=== PATIENT | female | born 1935 | race Caucasian/White ===

== ENCOUNTER 2017-07-22 09:43 | Inpatient (IN) | payer MEDICARE ==
[2017-07-22] MEDS ORDERED: Acetaminophen 500 MG TAB ONE (09:58)
[2017-07-22 10:23] LABS: #Basophils 0.1 thou/uL (0.0-0.2); #Eosinphils 0.1 thou/uL (0.0-0.7); #Lymphocytes 0.6 thou/uL (1.20-3.40); #Neutrophils 5.6 thou/uL (1.40-6.50); %Basophils 1.6 % (0.0-1.0); %Eosinophils 0.8 % (0.0-10.0); %Lymphocytes 8.2 % (21.0-51.0); %Monocytes 13.1 % (0.0-10.0); %Neutrophils 76.4 % (42.0-75.0); Hemoglobin 14.5 g/dL (12.0-16.0); Mean Corpuscular HGB CONC 34.6 g/dL (32.0-36.0); Mean Corpuscular Hemoglobin 31.8 pg (27.0-31.0); Mean Corpuscular Volume 91.7 fl (81.0-99.0); Mean Platelet Volume 6.6 fL (7.4-10.4); Platelet Count 177 thou/uL (130-400); RBC Distribution Width 11.1 % (11.5-14.5); Red Blood Cell (RBC) Count 4.57 mill/uL (4.20-5.40); White Blood Cell (WBC) Count 7.4 thou/uL (4.8-10.8)
[2017-07-22 10:37] LABS: ALT (SGPT) 20 U/L (8-55); AST (SGOT) 26 U/L (5-34); Alkaline Phosphatase 81 U/L (40-150); Anion Gap 14 mmol/L (10-20); BUN (Urea Nitrogen) 12 mg/dL (9.8-20.1); Bilirubin, Total 0.8 mg/dL (0.2-1.2); CK (CPK) 133 U/L (29-168); Calc. Creatinine Clearance 0 mL/min (70-130); Calcium 9.2 mg/dL (7.8-10.44); Carbon Dioxide 26 mmol/L (23-31); Chloride 100 mmol/L (98-107); Estimated GFR-MDRD 59; Globulin 3.7 g/dL (2.4-3.5); Glucose 116 mg/dL (83-110); Lipase 40 U/L (8-78); Potassium 3.7 mmol/L (3.5-5.1); Protein, Total 7.7 g/dL (6.0-8.3); Sodium 136 mmol/L (136-145)
[2017-07-22 10:40] LABS: CKMB 1.2 ng/mL (0-6.6); Troponin I 0.069 ng/mL (< 0.028)
--- NOTE | 2017-07-22 10:45 | RAD ---
RADIOGRAPH CHEST 1 VIEW: HISTORY: 81-year-old female with cough, chills, and fever. FINDINGS: There are no air space densities, pulmonary edema, pneumothorax, or cardiomegaly. The lateral costop hrenic angles are sharp. IMPRESSION: No acute cardiopulmonary findings. forrest [] POS: [facility]
[2017-07-22] MEDS ORDERED: Oseltamivir 75 MG CAP ONE (10:55)
[2017-07-22] MEDS ORDERED: Ondansetron HCl/PF 4 MG/2 ML Vial IVP PRN ×2 (12:24→13:23)
[2017-07-22] MEDS ORDERED: Ondansetron ODT 4 MG TAB SL PRN (12:24)
[2017-07-22] MEDS ORDERED: Sodium Chloride 0.9% 1,000 ML IV SCH (12:24)
[2017-07-22 12:47] VITALS: BMI 33.5
[2017-07-22] MEDS ORDERED: Ondansetron ODT 4 MG TAB PO PRN (13:23)
[2017-07-22] MEDS ORDERED: Mag-Al 1200 mg/1200 mg/30 ML UDCUP PO PRN (13:23)
[2017-07-22] MEDS ORDERED: cloNIDine 0.1 MG TAB PO PRN (13:23)
[2017-07-22] MEDS ORDERED: Acetaminophen 325 MG TAB PO PRN ×2 (13:23→14:10)
[2017-07-22] MEDS ORDERED: Milk Of Magnesia 30 ML UDCUP PO PRN (13:23)
[2017-07-22 14:49] LABS: Free T4 (Free Thyroxine) 1.07 ng/dL (0.70-1.48); Thyroid Stimulating Hormone 0.235 uIU/mL (0.35-4.94)
[2017-07-22] MEDS: Sodium Chloride 0.9% 1,000 ML IV SCH (15:13)
[2017-07-22] MEDS: Albuterol Sulfate 1.25 MG/3 ML NEB INH SCH ×2 (15:23→23:29)
--- NOTE | 2017-07-22 20:26 | HP ---
PRIMARY CARE PHYSICIAN: The patient does not have a primary care physician. CHIEF COMPLAINT: Coughing. HISTORY OF PRESENT ILLNESS: Ms. Muhammad is a very pleasant 81-year-old female, who has a history of r heumatoid arthritis. She is currently taking 4 mg of prednisone daily for this. She says that she h as been having a cough since Sunday. She says it has been fairly constant, it has been nonproductive . When asked if she is having any chest pain, she did admit to some pain in her chest, but she relat es it to coughing. She denies feeling short of breath, but admits that she has not been doing much w ith regards to moving around. She also complains of having a fever up to a 102 yesterday, but no hea dache or dizziness. She says that her children forced her to come into the emergency room for evalua tion. In the ER, she was found to be tachycardic with a heart rate in the 140s to 150s and she was p ositive for influenza A and for this reason she is being admitted. Chest x-ray in the ER was negativ e for any infiltrate or effusion. When asked how the patient is feeling, she says she feels fine oth er than having a cough, currently is not short of breath. She is sitting up watching TV with 2 of he r 3 children at the bedside. REVIEW OF SYSTEMS: Constitutional: She has had subjective fever, but no chills, no night sweats, no weight loss, but she has had a poor appetite. HEENT: She denies any headache. She denies feeling dizzy. She denies any sore throat, no rhinorrhea, no neck pain, no adenopathy. Pulmonary: She does complain of hearing some wheezing and having a cough, which has been primarily nonproductive. No he moptysis. Cardiovascular: She denies any chest pain, no PND, no orthopnea, no lower extremity edema . Gastrointestinal: She denies any abdominal pain, no nausea, no vomiting, no change in bowels. Ge nitourinary: No urinary frequency, no hematuria, no hesitancy. Neurologic: No focal weakness, no n umbness, no seizures. Psychiatric: No symptoms of anxiety or depression. Skin and Integument: No s kin changes. No rash. PAST MEDICAL HISTORY: Significant for rheumatoid arthritis. PAST SURGICAL HISTORY: She has had a tonsillectomy and sinus surgery. ALLERGIES: No known drug allergies. SOCIAL HISTORY: She is , has 3 children. She is a nonsmoker, nondrinker. She lives with one of her daughters. FAMILY HISTORY: No history of any inheritable diseases. MEDICATIONS: Include prednisone 4 mg daily. PHYSICAL EXAMINATION: GENERAL: She is alert and oriented. She appears to be in no acute distress. VITAL SIGNS: Her blood pressure is 131/74, heart rate 150, respiratory rate of 20, temperature is 99 .7. HEENT: Pupils are equal, round, and reactive. Extraocular muscles are intact. Sclerae are anicteri c. Throat: There is no erythema, no exudates. NECK: No adenopathy, no bruits. LUNGS: She has got fairly tight expiratory wheezing bilaterally and throughout her entire lung field s. CARDIOVASCULAR: She has a normal S1, S2, but her heart rate is tachycardic. I am unable to assess o r hear any murmurs or rubs. ABDOMEN: Obese, it is soft, it is nontender, nondistended. Positive for bowel sounds. No rebound o r guarding. EXTREMITIES: There is no edema. NEUROLOGIC: The exam is nonfocal. LABORATORY RESULTS: Sodium is 136, potassium is 3.7, chloride is 100, CO2 is 26, BUN is 12, creatini ne is 0.92, glucose is 116, and troponin is 0.069. White blood cell count is 7.4, hemoglobin is 14.5 , hematocrit is 41.9, and platelet count is 177. IMAGING: She had an EKG done, which was significant for sinus tachycardia. ASSESSMENT AND PLAN: This is a pleasant 81-year-old female who is influenza A positive, who has tach ycardia, which may be related to some mild volume depletion from the flu as well as the excessive cou ghing. However, when I did a review of her EKG, I do have some difficulty making of P-waves; however , her heart rate is regular. It is possible she could have some form of atrial tachycardia or suprav entricular tachycardia as well. She will be placed in observation. We will continue IV fluids and g et a TSH and free T4 as well as continue treating her with Tamiflu and treat her respiratory status. If her tachycardia persists, then we will need to consult Cardiology. For the rheumatoid arthritis, she will continue prednisone at 4 mg a day; however, today we will give her a single dose of IV Solu -Medrol at 40 mg primarily for her respiratory status.
[2017-07-22] MEDS ORDERED: Oseltamivir 75 MG CAP PO SCH (21:00)
[2017-07-22] MEDS: Oseltamivir 75 MG CAP PO SCH (21:02)
[2017-07-23] MEDS: Sodium Chloride 0.9% 1,000 ML IV SCH (03:05)
[2017-07-23 04:59] LABS: #Lymphocytes 0.5 thou/uL (1.20-3.40); #Monocytes 0.5 thou/uL (0.11-0.59); #Neutrophils 3.6 thou/uL (1.40-6.50); %Eosinophils 0.2 % (0.0-10.0); %Lymphocytes 11.3 % (21.0-51.0); %Monocytes 10.6 % (0.0-10.0); %Neutrophils 77.9 % (42.0-75.0); Hemoglobin 12.1 g/dL (12.0-16.0); Mean Corpuscular HGB CONC 33.4 g/dL (32.0-36.0); Mean Corpuscular Volume 98.8 fl (81.0-99.0); Mean Platelet Volume 7.2 fL (7.4-10.4); Platelet Count 158 thou/uL (130-400); RBC Distribution Width 11.7 % (11.5-14.5); Red Blood Cell (RBC) Count 3.67 mill/uL (4.20-5.40); White Blood Cell (WBC) Count 4.6 thou/uL (4.8-10.8)
[2017-07-23 05:17] LABS: Anion Gap 12 mmol/L (10-20); BUN (Urea Nitrogen) 16 mg/dL (9.8-20.1); Calc. Creatinine Clearance 86 mL/min (70-130); Calcium 8.7 mg/dL (7.8-10.44); Carbon Dioxide 23 mmol/L (23-31); Chloride 107 mmol/L (98-107); Estimated GFR-MDRD 76; Glucose 133 mg/dL (83-110); Potassium 3.6 mmol/L (3.5-5.1); Sodium 138 mmol/L (136-145)
[2017-07-23] MEDS: Albuterol Sulfate 1.25 MG/3 ML NEB INH SCH ×3 (06:57→22:21)
[2017-07-23] MEDS: Oseltamivir 75 MG CAP PO SCH ×2 (09:16→21:36)
[2017-07-23] MEDS: predniSONE 1 MG TAB PO SCH (09:16)
[2017-07-23] MEDS: Enoxaparin Sodium 40 MG/0.4 ML SYRINGE SC SCH (09:17)
--- NOTE | 2017-07-23 12:22 | PDOC.PN ---
- Subjective Encounter Start Date: 07/23/17 Encounter Start Time: 12:21 Ms. Muhammad was seen today in follow-up. She is still feeling a bit weak. she has been coughing a lot, and has a sore throat. - Objective Resuscitation Status: Resuscitation Status FULL:Full Resuscitation MAR Reviewed: Yes Vital Signs & Weight: Vital Signs (12 hours) Temp Pulse Resp BP BP Pulse Ox 07/23/17 11:31 97.7 F 62 18 158/71 H 95 07/23/17 08:30 97.8 F 87 18 179/80 H 95 07/23/17 07:45 97.8 F 87 18 179/80 H 95 07/23/17 06:57 68 16 96 07/23/17 03:06 98.2 F 94 20 142/95 H 92 L I&O: 07/22/17 07/23/17 07/24/17 06:59 06:59 06:59 Intake Total 1531 Balance 1531 Result Diagrams: 07/23/17 04:29 07/23/17 04:29 Phys Exam - Physical Examination HEENT: PERRLA Respiratory: wheezing present + tight wheezing bilaterally Cardiovascular: RRR, no significant murmur, no rub Gastrointestinal: soft, non-tender, positive bowel sounds Musculoskeletal: no edema Dx/Plan (1) Influenza A Code(s): J10.1 - FLU DUE TO OTH IDENT INFLUENZA VIRUS W OTH RESP MANIFEST Status: Acute (2) Acute bronchitis Code(s): J20.9 - ACUTE BRONCHITIS, UNSPECIFIED Status: Acute (3) Rheumatoid arthritis Code(s): M06.9 - RHEUMATOID ARTHRITIS, UNSPECIFIED Status: Acute - Plan * Influenza A- continue Tamiflu and symptom relief * RA- stable * Possibly home tomorrow if brochospasms have improved.
[2017-07-23] MEDS ORDERED: Chloraseptic Spray 180 ml Bottle PO PRN (12:24)
[2017-07-23 13:46] LABS: Troponin I 0.045 ng/mL (< 0.028)
[2017-07-23] MEDS: Benzonatate 100 MG CAP PO SCH ×2 (14:49→21:37)
[2017-07-24] MEDS: Albuterol Sulfate 1.25 MG/3 ML NEB INH SCH (07:02)
[2017-07-24] MEDS: predniSONE 1 MG TAB PO SCH (07:28)
[2017-07-24] MEDS: Enoxaparin Sodium 40 MG/0.4 ML SYRINGE SC SCH (07:29)
[2017-07-24] MEDS: Oseltamivir 75 MG CAP PO SCH ×2 (07:29→21:55)
[2017-07-24] MEDS: Benzonatate 100 MG CAP PO SCH ×3 (07:29→21:55)
[2017-07-24] MEDS ORDERED: Albuterol Sulfate 2.5 mg/3 ml Neb NEB PRN (10:07)
--- NOTE | 2017-07-24 11:04 | RAD ---
SINGLE VIEW OF THE CHEST: COMPARISON: 07/22/17. HISTORY: Acute hypoxia. FINDINGS: Single view of the chest shows a normal sized cardiomediastinal silhouette. There is no evidence of c onsolidation, mass, or pleural effusion. The bones are unremarkable. IMPRESSION: No evidence of acute cardiopulmonary disease. POS: [facility]
--- NOTE | 2017-07-24 11:26 | PDOC.PN ---
- Subjective Encounter Start Date: 07/24/17 Encounter Start Time: 09:50 -: old records requested/rev Pt seen and examined, chart reviewed i its entirety. This is my first visit with this patient. Daughter at [facility], updated Pt earlier with fever 102.3, elevated HR and BP. On review, Pt looked ot be in aflutter on admit, converted to SR and has remained. Today, was tachy in 110s with fever, back to 80s on my exam. No N/v/D/C, no CP, +SOB. 86% on RA 10 point ROS performed and neg for all systems except as per hPI - Objective MAR Reviewed: Yes Result Diagrams: 07/23/17 04:29 07/23/17 04:29 Radiology Reviewed by me: Yes EKG Reviewed by me: Yes Phys Exam - Physical Examination Constitutional: NAD HEENT: PERRLA, moist MMs, sclera anicteric, oral pharynx no lesions Neck: no nodes, no JVD, supple, full ROM Respiratory: no rales, no rhonchi diffuse insp and exp wheezes in all lung junior, R>L Cardiovascular: RRR, no significant murmur, no rub Gastrointestinal: soft, non-tender, no distention, positive bowel sounds Musculoskeletal: no edema, pulses present Neurological: non-focal, normal sensation, moves all 4 limbs Lymphatic: no nodes Psychiatric: normal affect, A&O x 3 Skin: no rash, normal turgor, cap refill <2 seconds Dx/Plan (1) Reactive airway disease with wheezing Code(s): J45.909 - UNSPECIFIED ASTHMA, UNCOMPLICATED Status: Acute Qualifiers: Asthma severity: unspecified severity Asthma persistence: unspecified Asthma complication type: with acute exacerbation Qualified Code(s): J45.901 - Unspecified asthma with (acute) exacerbation (2) Acute hypoxemic respiratory failure Code(s): J96.01 - ACUTE RESPIRATORY FAILURE WITH HYPOXIA Status: Acute Comment: 86% on RA, accompanied by wheezing. Iv steroids, nebs, O2, wean as tolerated (3) Sepsis Code(s): A41.9 - SEPSIS, UNSPECIFIED ORGANISM Status: Acute Comment: present on admit, fever, tachycadia, elevated WBC, possible bacterial/virla infection with FLu A +. resolving. still with fever and tachycardia, WBC resolved (4) Acute bronchitis Code(s): J20.9 - ACUTE BRONCHITIS, UNSPECIFIED Status: Acute Qualifiers: Bronchitis organism: other organism Qualified Code(s): J20.8 - Acute bronchitis due to other specified organisms Comment: influenza A On tamiflu (5) Influenza A Code(s): J10.1 - FLU DUE TO OTH IDENT INFLUENZA VIRUS W OTH RESP MANIFEST Status: Acute (6) Rheumatoid arthritis Code(s): M06.9 - RHEUMATOID ARTHRITIS, UNSPECIFIED Status: Acute Qualifiers: Rheumatoid arthritis location: unspecified site Rheumatoid factor presence : with rheumatoid factor Qualified Code(s): M05.9 - Rheumatoid arthritis with rheumatoid factor, unspecified Comment: normally steroid dependent [id number] pred daily. - Plan cont current plan of care, plan discussed w/ family, continue antibiotics, PT/OT , respiratory therapy, out of bed/ambulate, DVT proph w/lovenox * .
[2017-07-25] MEDS ORDERED: Esmolol 2,500 MG/250 ML 250 ML IVPB SCH ×2 (03:45→08:30)
[2017-07-25 05:12] LABS: #Lymphocytes 0.5 thou/uL (1.20-3.40); #Monocytes 0.2 thou/uL (0.11-0.59); #Neutrophils 5.7 thou/uL (1.40-6.50); %Basophils 0.3 % (0.0-1.0); %Eosinophils 0.1 % (0.0-10.0); %Lymphocytes 7.5 % (21.0-51.0); %Monocytes 3.7 % (0.0-10.0); %Neutrophils 88.5 % (42.0-75.0); Hemoglobin 13.6 g/dL (12.0-16.0); Mean Corpuscular HGB CONC 33.9 g/dL (32.0-36.0); Mean Corpuscular Hemoglobin 33.1 pg (27.0-31.0); Mean Corpuscular Volume 97.7 fl (81.0-99.0); Mean Platelet Volume 7.3 fL (7.4-10.4); Platelet Count 171 thou/uL (130-400); RBC Distribution Width 11.6 % (11.5-14.5); Red Blood Cell (RBC) Count 4.11 mill/uL (4.20-5.40); White Blood Cell (WBC) Count 6.4 thou/uL (4.8-10.8)
[2017-07-25 05:37] LABS: Anion Gap 15 mmol/L (10-20); BUN (Urea Nitrogen) 16 mg/dL (9.8-20.1); Calc. Creatinine Clearance 82 mL/min (70-130); Calcium 9.5 mg/dL (7.8-10.44); Carbon Dioxide 21 mmol/L (23-31); Chloride 105 mmol/L (98-107); Estimated GFR-MDRD 72; Glucose 134 mg/dL (83-110); Magnesium 2.1 mg/dL (1.6-2.6); Potassium 3.6 mmol/L (3.5-5.1); Sodium 137 mmol/L (136-145)
[2017-07-25] MEDS: Oseltamivir 75 MG CAP PO SCH ×2 (08:55→20:39)
[2017-07-25] MEDS: Benzonatate 100 MG CAP PO SCH ×3 (08:55→20:39)
[2017-07-25] MEDS: Enoxaparin Sodium 40 MG/0.4 ML SYRINGE SC SCH (08:57)
[2017-07-25] MEDS ORDERED: predniSONE 20 MG TAB PO SCH (09:30)
[2017-07-25 10:47] LABS: CKMB 4.8 ng/mL (0-6.6); Troponin I 0.016 ng/mL (< 0.028)
[2017-07-25] MEDS ORDERED: Metoprolol Tartrate 5 MG/5 ML VIAL IVP SCH (11:15)
[2017-07-25] MEDS: Digoxin 0.5 MG/2 ML AMP SLOW IVP SCH (11:32)
--- NOTE | 2017-07-25 12:27 | PDOC.PN ---
- Subjective Encounter Start Date: 07/25/17 Encounter Start Time: 09:40 Pt breathing better, but developed afib with RVR with rate up to 170s. Esmolol gtt ordered by Dr Beth, but not started, and pt converted back to NSR. After my visit, pt back to A fib with rat in 150s. given Dig IV X 1 with repeat in 12 hours. CAardiology already consulted by me this AM, awaiting recs. No CP, no SOB, no N/V/d/C. Pt getting up and walking in room without difficulties 10 point ROs performed and neg for all systems except as per HPI - Objective MAR Reviewed: Yes Vital Signs & Weight: Vital Signs (12 hours) Temp Pulse Resp BP BP Pulse Ox 07/25/17 11:50 126 H 18 136/80 07/25/17 11:40 116 H 131/77 07/25/17 11:32 155 H 07/25/17 09:00 94 20 186/87 H 07/25/17 08:57 186/87 H 07/25/17 07:45 96.6 F L 154 H 20 175/101 H 94 L 07/25/17 06:27 85 16 97 07/25/17 04:30 94 L 07/25/17 04:00 98.1 F 118 H 20 137/90 94 L Weight Weight 192 lb 8 oz I&O: 07/24/17 07/25/17 07/26/17 06:59 06:59 06:59 Intake Total 1980 Output Total 1000 Balance 980 Result Diagrams: 07/25/17 04:14 07/25/17 04:14 Radiology Reviewed by me: Yes EKG Reviewed by me: Yes Phys Exam - Physical Examination Constitutional: NAD HEENT: PERRLA, moist MMs, sclera anicteric, oral pharynx no lesions Neck: no nodes, no JVD, supple, full ROM Respiratory: no wheezing, no rales, no rhonchi, clear to auscultation bilateral Cardiovascular: RRR, no significant murmur, no rub Gastrointestinal: soft, non-tender, no distention, positive bowel sounds Musculoskeletal: no edema, pulses present Neurological: non-focal, normal sensation, moves all 4 limbs Lymphatic: no nodes Psychiatric: normal affect, A&O x 3 Skin: no rash, normal turgor, cap refill <2 seconds Dx/Plan (1) Reactive airway disease with wheezing Code(s): J45.909 - UNSPECIFIED ASTHMA, UNCOMPLICATED Status: Acute Qualifiers: Asthma severity: unspecified severity Asthma persistence: unspecified Asthma complication type: with acute exacerbation Qualified Code(s): J45.901 - Unspecified asthma with (acute) exacerbation Comment: much better. po steroids today, continue nebs (2) Acute hypoxemic respiratory failure Code(s): J96.01 - ACUTE RESPIRATORY FAILURE WITH HYPOXIA Status: Acute Comment: O2 level better today, wean as tolerated (3) Sepsis Code(s): A41.9 - SEPSIS, UNSPECIFIED ORGANISM Status: Acute Comment: present on admit, fever, tachycadia, elevated WBC, possible bacterial/virla infection with FLu A +. resolving. still with fever and tachycardia, WBC resolved (4) Acute bronchitis Code(s): J20.9 - ACUTE BRONCHITIS, UNSPECIFIED Status: Acute Qualifiers: Bronchitis organism: other organism Qualified Code(s): J20.8 - Acute bronchitis due to other specified organisms Comment: influenza A On tamiflu (5) Influenza A Code(s): J10.1 - FLU DUE TO OTH IDENT INFLUENZA VIRUS W OTH RESP MANIFEST Status: Acute (6) Rheumatoid arthritis Code(s): M06.9 - RHEUMATOID ARTHRITIS, UNSPECIFIED Status: Acute Qualifiers: Rheumatoid arthritis location: unspecified site Rheumatoid factor presence : with rheumatoid factor Qualified Code(s): M05.9 - Rheumatoid arthritis with rheumatoid factor, unspecified Comment: normally steroid dependent teis0pd pred daily. (7) Paroxysmal A-fib Code(s): I48.0 - PAROXYSMAL ATRIAL FIBRILLATION Status: Acute (8) Atrial fibrillation with RVR Code(s): I48.91 - UNSPECIFIED ATRIAL FIBRILLATION Status: Acute (9) New onset a-fib Code(s): I48.91 - UNSPECIFIED ATRIAL FIBRILLATION Status: Acute - Plan cont current plan of care, continue antibiotics, PT/OT, respiratory therapy, out of bed/ambulate, DVT proph w/lovenox * . serial biomarkers, cardiology consult, load with dig. We are out of [facility] here
--- NOTE | 2017-07-25 14:13 | CON ---
DATE OF CONSULTATION: 07/25/2017 INDICATION FOR CONSULTATION: A 81-year-old female with rapid heart rate. HISTORY OF PRESENT ILLNESS: This very pleasant 81-year-old female who has a history of rheumatoid ar thritis has no primary care physician. She does see a levers lace machine operator in [place]. She has been takin g prednisone and she noticed recently she has been having what she thought was a cold coming on and i t ended up that the lady eventually got worse, had a temperature of 104 and 102 she says and then pre sented to emergency room and was found to have influenza. Since being in the hospital, she has episo omer of tachycardia. While in the emergency room her heart rate actually was in the 140s to 150s. est x-ray did not show any acute abnormalities. She does not feel the heart rate when it is tachycar rich, but she has had episodes of atrial fibrillation and flutter since being in the hospital. At thi s time, she has converted back to normal sinus rhythm after being given I believe beta blockers and a lso 1 dose of digoxin. She denies any previous cardiac history. She denied any chest pain. She has no history of hypertension, diabetes, hypercholesterolemia, tobacco abuse or strong family history o f coronary artery disease. PAST MEDICAL HISTORY: Rheumatoid arthritis, herpes zoster. She has had a tonsillectomy and sinus marroquin rgery. ALLERGIES: She has no known drug allergies, but is intolerant to SULFASALAZINE. SOCIAL HISTORY: She is a . She has 3 children. She has no alcohol or tobacco abuse. She live s with one of her daughters. FAMILY HISTORY: Noncontributory for any early heart disease. REVIEW OF SYSTEMS: Twelve point review of systems is unremarkable except what was noted in the histo ry of present illness. She has aches and pains due to her rheumatoid arthritis for which she takes h er steroids. She has no complaints of pains. Presently her only medication prior to admission was p rednisone. PHYSICAL EXAMINATION: GENERAL: Reveals a well-developed, well-nourished female who is in no acute distress. VITAL SIGNS: Her blood pressure at this time is 136/80, heart rate is in the 80s to 90s and shows a normal sinus rhythm at this time. Earlier today her heart rate is in the 150s and showed atrial flut ter with occasional episodes of what appeared to be atrial fibrillation. She is afebrile, respirator y rate is 20. HEENT: Shows the head to be normocephalic, atraumatic. Carotid pulses are present. There were no b ruits noted. CHEST: Her chest has expiratory wheezing in both the upper lobes. CARDIOVASCULAR: She has normal S1, S2. I cannot hear an S3 or S4. There were no significant murmur s, heaves, thrills, bruits or rubs. ABDOMEN: Soft and nontender. Positive bowel sounds are present. She has some obesity. There is no significant masses noted. EXTREMITIES: Showed no clubbing, cyanosis or edema. Pedal pulses are present. NEUROLOGIC: The patient has no focal deficits. SKIN: Warm and dry. LABORATORY AND DATA: Shows a creatinine 0.77, potassium 3.6. Her hemoglobin is 13.3 with a WBC 6.4, troponin I was 0.69 on admission which has been increased down to 0.45 and is now down all the way t o 0.016 with a negative MB and her TSH was low at 0.235. IMPRESSION: 1. A 81-year-old female with atrial flutter and episodes of fibrillation also at times, who was krysta tamera with digoxin and beta blockers and converted back to sinus rhythm. At this time, until she is ov er her illness we most likely can continue to monitor her and control the heart rate with a low dose of beta blockers. She may need to be eventually visited by the make up worker for evaluation of possible flutter ablation. Due to the atrial flutter she does not notice the episodes even when she was here in the hospital, she did not have any indication that she had tachycardia. 2. History of rheumatoid arthritis. This will be dealt with by the primary care service. Otherwise, she appears to be very stable from a cardiac standpoint. I will obtain an echocardiogram for evaluation of the left atrial size as well as the cardiovascular function and the vascular and t he valvular structures. Thank you very much for asking us to see this very pleasant lady. We will continue to follow her wit h you, but if she has any further episodes of atrial flutter then I would advise her to have consulta tion with the make up worker.
[2017-07-25 18:25] LABS: CKMB 5.4 ng/mL (0-6.6); Troponin I 0.018 ng/mL (< 0.028)
[2017-07-25] MEDS: Metoprolol Tartrate 25 MG TAB PO SCH (20:39)
[2017-07-26] MEDS: Digoxin 0.5 MG/2 ML AMP SLOW IVP SCH (00:48)
[2017-07-26 02:08] LABS: CKMB 4.6 ng/mL (0-6.6); Troponin I 0.019 ng/mL (< 0.028)
[2017-07-26] MEDS: Enoxaparin Sodium 40 MG/0.4 ML SYRINGE SC SCH (08:01)
[2017-07-26] MEDS: Oseltamivir 75 MG CAP PO SCH ×2 (08:02→21:37)
[2017-07-26] MEDS: predniSONE 20 MG TAB PO SCH (08:02)
[2017-07-26] MEDS: Metoprolol Tartrate 25 MG TAB PO SCH ×2 (08:02→21:37)
[2017-07-26] MEDS: Benzonatate 100 MG CAP PO SCH ×3 (08:02→21:37)
--- NOTE | 2017-07-26 10:43 | PDOC.PN ---
- Subjective Encounter Start Date: 07/26/17 Encounter Start Time: 10:42 Subjective: Seen and examined feeling ok - Objective Vital Signs & Weight: Vital Signs (12 hours) Temp Pulse Resp BP Pulse Ox 07/26/17 07:55 96.8 F L 60 18 164/74 H 95 07/26/17 07:04 70 16 07/26/17 04:17 98.0 F 58 L 18 171/72 H 95 07/26/17 00:48 62 07/26/17 00:00 98.9 F 62 18 177/76 H 95 Weight Weight 195 lb I&O: 07/25/17 07/26/17 07/27/17 06:59 06:59 06:59 Intake Total 1980 2360 Output Total 1000 2125 Balance 980 235 Result Diagrams: 07/25/17 04:14 07/25/17 04:14 Phys Exam - Physical Examination Constitutional: NAD HEENT: PERRLA, moist MMs, sclera anicteric, TM's clear Neck: no nodes, no JVD, supple Respiratory: no wheezing, no rales, no rhonchi, clear to auscultation bilateral Cardiovascular: no significant murmur Gastrointestinal: soft, non-tender, no distention, positive bowel sounds Musculoskeletal: no edema, pulses present Dx/Plan (1) Atrial fibrillation with RVR Code(s): I48.91 - UNSPECIFIED ATRIAL FIBRILLATION Status: Acute (2) New onset a-fib Code(s): I48.91 - UNSPECIFIED ATRIAL FIBRILLATION Status: Acute (3) Paroxysmal A-fib Code(s): I48.0 - PAROXYSMAL ATRIAL FIBRILLATION Status: Acute (4) Reactive airway disease with wheezing Code(s): J45.909 - UNSPECIFIED ASTHMA, UNCOMPLICATED Status: Acute Qualifiers: Asthma severity: unspecified severity Asthma persistence: unspecified Asthma complication type: with acute exacerbation Qualified Code(s): J45.901 - Unspecified asthma with (acute) exacerbation Comment: much better. po steroids today, continue nebs (5) Rheumatoid arthritis Code(s): M06.9 - RHEUMATOID ARTHRITIS, UNSPECIFIED Status: Acute Qualifiers: Rheumatoid arthritis location: unspecified site Rheumatoid factor presence : with rheumatoid factor Qualified Code(s): M05.9 - Rheumatoid arthritis with rheumatoid factor, unspecified Comment: normally steroid dependent [id number] pred daily. (6) Acute bronchitis Code(s): J20.9 - ACUTE BRONCHITIS, UNSPECIFIED Status: Acute Qualifiers: Bronchitis organism: other organism Qualified Code(s): J20.8 - Acute bronchitis due to other specified organisms Comment: influenza A On tamiflu (7) Acute hypoxemic respiratory failure Code(s): J96.01 - ACUTE RESPIRATORY FAILURE WITH HYPOXIA Status: Acute Comment: O2 level better today, wean as tolerated (8) Influenza A Code(s): J10.1 - FLU DUE TO OTH IDENT INFLUENZA VIRUS W OTH RESP MANIFEST Status: Acute - Plan plan discussed w/ family, PT/OT, social media job titles Appreciate cardiology input -: Dispo planning * .
--- NOTE | 2017-07-26 12:07 | PDOC.CTH ---
<Yolanda Nunez - Last Filed: 07/26/17 12:35> Cardiology Progress Note - Subjective The pt seen and examined. No overnight events. No cardiac complaints. Still require duoneb q4hrs. - Objective Vital Signs Temp Pulse Resp BP Pulse Ox 07/26/17 11:18 70 16 07/26/17 07:55 96.8 F L 60 18 164/74 H 95 07/26/17 07:04 70 16 07/26/17 04:17 98.0 F 58 L 18 171/72 H 95 07/26/17 00:48 62 Weight 195 lb 07/25/17 07/26/17 07/27/17 06:59 06:59 06:59 Intake Total 1980 2360 Output Total 1000 2125 Balance 980 235 - Physical Examination General/Neuro: alert & oriented x3 Neck: no JVD present Lungs: other: (coases and dminished at bases) Heart: RRR Abdomen: soft Extremities: other: (No edema) - Telemetry Telemetry Rhythm: SR 60s - Labs Result Diagrams: 07/25/17 04:14 07/25/17 04:14 Troponin/CKMB CK-MB (CK-2) 4.6 ng/mL (0-6.6) 07/26/17 01:31 Troponin I 0.019 ng/mL (< 0.028) 07/26/17 01:31 - Assessment/Plan 1. Afib/Aflutter with RVR - remains SR 60s. Possible Aflutter Ablation as outpt ?; D/c home with EVR 2. Influenza A - on Tamiflu; managed by PCP 3. HTN - Start Lisinopril mg daily; cont. monitor 4. Rheumatoid arthritis - on Prednisone; managed by PCP MAR reviewed *Echo on07/25/17 showed EF 60-65%, radha bilat atrium sizes; trace TR, and mild MR Review of Systems - Review of Systems Constitutional: reports: no symptoms reported EENTM: reports: no symptoms reported Respiratory: reports: see HPI Cardiac (ROS): reports: no symptoms reported ABD/GI: reports: no symptoms reported : reports: no symptoms reported <Mike Bender - Last Filed: 07/26/17 17:03> Cardiology Progress Note - Objective Vital Signs Temp Pulse Resp BP Pulse Ox 07/26/17 13:58 80 14 02/15/18 12:00 97.1 F L 59 L 18 166/72 H 95 07/26/17 11:18 70 16 07/26/17 08:00 96.8 F L 70 16 95 07/26/17 07:55 96.8 F L 60 18 164/74 H 95 07/26/17 07:04 70 16 Weight 195 lb 07/25/17 07/26/17 07/27/17 06:59 06:59 06:59 Intake Total 1980 2360 Output Total 1000 2125 Balance 980 235 - Labs Result Diagrams: 07/25/17 04:14 07/25/17 04:14 Troponin/CKMB CK-MB (CK-2) 4.6 ng/mL (0-6.6) 07/26/17 01:31 Troponin I 0.019 ng/mL (< 0.028) 07/26/17 01:31 - Assessment/Plan pt. seen and eval. by me. No further afib. since this AM. Agree with the A/P by the TICKET TAKER. Home in next few days with an event monitor.
[2017-07-26] MEDS: Acetylcysteine 20% 200 MG/ML 30 ML VIAL INH PRN (18:54)
--- NOTE | 2017-07-27 08:22 | PDOC.PN ---
- Subjective Encounter Start Date: 07/27/17 Encounter Start Time: 08:21 Subjective: Seen and examined feeling better - Objective Vital Signs & Weight: Vital Signs (12 hours) Temp Pulse Resp BP Pulse Ox 07/27/17 07:54 72 16 07/27/17 03:41 98.7 F 56 L 12 171/74 H 95 07/27/17 03:09 79 16 94 L 07/26/17 23:57 97.9 F 56 L 13 174/77 H 97 07/26/17 22:46 80 16 94 L Weight Weight 197 lb I&O: 07/26/17 07/27/17 07/28/17 06:59 06:59 06:59 Intake Total 2360 1290 Output Total 2125 1600 Balance 235 -310 Result Diagrams: 07/25/17 04:14 07/25/17 04:14 Phys Exam - Physical Examination Constitutional: NAD HEENT: PERRLA, moist MMs, sclera anicteric, TM's clear, oral pharynx no lesions Neck: no nodes, no JVD, supple, full ROM Respiratory: no wheezing, no rales, no rhonchi, clear to auscultation bilateral Cardiovascular: RRR, no significant murmur, no rub Gastrointestinal: soft, non-tender, no distention, positive bowel sounds Musculoskeletal: no edema, pulses present Dx/Plan (1) Atrial fibrillation with RVR Code(s): I48.91 - UNSPECIFIED ATRIAL FIBRILLATION Status: Acute (2) New onset a-fib Code(s): I48.91 - UNSPECIFIED ATRIAL FIBRILLATION Status: Acute (3) Paroxysmal A-fib Code(s): I48.0 - PAROXYSMAL ATRIAL FIBRILLATION Status: Acute (4) Reactive airway disease with wheezing Code(s): J45.909 - UNSPECIFIED ASTHMA, UNCOMPLICATED Status: Acute Qualifiers: Asthma severity: unspecified severity Asthma persistence: unspecified Asthma complication type: with acute exacerbation Qualified Code(s): J45.901 - Unspecified asthma with (acute) exacerbation Comment: much better. po steroids today, continue nebs (5) Rheumatoid arthritis Code(s): M06.9 - RHEUMATOID ARTHRITIS, UNSPECIFIED Status: Acute Qualifiers: Rheumatoid arthritis location: unspecified site Rheumatoid factor presence : with rheumatoid factor Qualified Code(s): M05.9 - Rheumatoid arthritis with rheumatoid factor, unspecified Comment: normally steroid dependent hody3kh pred daily. (6) Acute bronchitis Code(s): J20.9 - ACUTE BRONCHITIS, UNSPECIFIED Status: Acute Qualifiers: Bronchitis organism: other organism Qualified Code(s): J20.8 - Acute bronchitis due to other specified organisms Comment: influenza A On tamiflu (7) Acute hypoxemic respiratory failure Code(s): J96.01 - ACUTE RESPIRATORY FAILURE WITH HYPOXIA Status: Acute Comment: O2 level better today, wean as tolerated (8) Influenza A Code(s): J10.1 - FLU DUE TO OTH IDENT INFLUENZA VIRUS W OTH RESP MANIFEST Status: Acute - Plan plan discussed w/ family, continue antibiotics, PT/OT, social services technician, respiratory therapy D/c home once Event monitor is set up by cardiology * .
[2017-07-27] MEDS: Benzonatate 100 MG CAP PO SCH ×2 (09:28→14:38)
[2017-07-27] MEDS: predniSONE 20 MG TAB PO SCH (09:28)
[2017-07-27] MEDS: Metoprolol Tartrate 25 MG TAB PO SCH (09:29)
[2017-07-27] MEDS: Enoxaparin Sodium 40 MG/0.4 ML SYRINGE SC SCH (09:29)
[2017-07-27] MEDS: Oseltamivir 75 MG CAP PO SCH (09:29)
--- NOTE | 2017-07-27 09:36 | PDOC.CTH ---
Cardiology Progress Note - Subjective The pt seen and examined. No overnight events. No cardiac complaints. She walks 400 ft today with RA and her lowest O2sat was 91%. - Objective Vital Signs Temp Pulse Resp BP Pulse Ox 07/27/17 08:17 98.3 F 56 L 20 171/74 H 93 L 07/27/17 07:54 72 16 07/27/17 03:41 98.7 F 56 L 12 171/74 H 95 07/27/17 03:09 79 16 94 L 07/26/17 23:57 97.9 F 56 L 13 174/77 H 97 07/26/17 22:46 80 16 94 L Weight 197 lb 07/26/17 07/27/17 07/28/17 06:59 06:59 06:59 Intake Total 2360 1290 Output Total 2125 1600 Balance 235 -310 - Physical Examination General/Neuro: alert & oriented x3 Neck: no JVD present Lungs: CTA (diminished at bases Rt>Lt) Heart: RRR Abdomen: soft Extremities: other: (No edema) - Telemetry Telemetry Rhythm: SR 60s - Labs Result Diagrams: 07/25/17 04:14 07/25/17 04:14 Troponin/CKMB CK-MB (CK-2) 4.6 ng/mL (0-6.6) 07/26/17 01:31 Troponin I 0.019 ng/mL (< 0.028) 07/26/17 01:31 - Assessment/Plan 1. Afib/Aflutter with RVR - remains SR 60s. D/c home with EVR; Possible Aflutter Ablation as outpt if EVR showed any Arrhythmias; 2. Influenza A - Today she will have last Tamiflu dose; managed by PCP 3. HTN - Start Amlodipine 5mg;cont. monitor 4. Rheumatoid arthritis - on Prednisone; managed by PCP MAR reviewed *Echo on07/25/17 showed EF 60-65%, radha bilat atrium sizes; trace TR, and mild MR * From cardiac standpoint, the pt is stable to d/c home with EVR for 3wks. Then , she will f/u with Dr Bender' office within 4-5wks. Possible Aflutter Ablation as outpt if EVR showed any Arrhythmias Review of Systems - Review of Systems Constitutional: reports: no symptoms reported EENTM: reports: no symptoms reported Respiratory: reports: see HPI Cardiac (ROS): reports: no symptoms reported ABD/GI: reports: no symptoms reported : reports: no symptoms reported Musculoskeletal: reports: no symptoms reported
[2017-07-27] MEDS ORDERED: Amlodipine 5 MG TAB PO SCH (09:45)
[2017-07-27] MEDS ORDERED: Lisinopril 10 MG TAB PO SCH ×2 (12:30→16:15)
[2017-07-27] MEDS: Acetylcysteine 20% 200 MG/ML 30 ML VIAL INH PRN (15:15)
[2017-07-27 16:04] VITALS: BP 162/71; TEMP 99
[2017-07-28] MEDS ORDERED: Amlodipine 5 MG TAB PO SCH (09:00)
[2017-07-28] MEDS ORDERED: Lisinopril 10 MG TAB PO SCH (09:00)
--- NOTE | 2017-07-31 13:45 | DIS ---
For details of the history and physical and consultative notes refer to dictations on record. SUMMARY: A 81-year-old female patient who presented here with cough, got diagnosed with influenza. Patient during the course of hospitalization was noted to have developed atrial fibrillation with rap id ventricular response. Cardiology was involved and was seen by Dr. Bender patient does have hi story of atrial fibrillation; however, given the ongoing illness, decision was taken not to esc alate management be rather to continue and control with the current medications that this patient nee ds. Patient is having maintained sustained clinical improvement, was subsequently discharged on the following medications: Amlodipine 5 mg p.o. daily, Tessalon 100 mg p.o. b.i.d., DuoNebs q.i.d., leeanna nopril 10 mg p.o. daily, Lopressor 12.5 mg p.o. b.i.d., prednisone taper. DISCHARGE INSTRUCTIONS: 1. Follow up with Cardiology. 2. Follow up with primary care physician. 3. Represent here in case of any relapse or deterioration in clinical condition. Total time spent including [id number] encounter 31 minutes.
--- NOTE | 2017-08-01 10:50 | EKG ---
Test Reason : A-FIB Blood Pressure : / mmHG Vent. Rate : 145 BPM Atrial Rate : 145 BPM P-R Int : 142 ms QRS Dur : 088 ms QT Int : 352 ms P-R-T Axes : 000 032 223 degrees QTc Int : 546 ms Sinus tachycardia vs A, Flutter with 2:1 block is suspected due to rate. Marked ST abnormality, possible inferior subendocardial injury Abnormal ECG No previous ECGs available Confirmed by SHAQ CASEY ([id number]) on 08/01/2017 10:50:15 AM Referred By: CHERRY Confirmed By:SHAQ CASEY
== END 2017-07-27 19:35 | disposition home or self-care (01) | DRG 871 ==
LOC: SCSER 09:43 → 2SW 11:35 → OBSVTOIN 07-24 10:08 → 2NO 07-24 16:28
PROVIDERS: ADMIT Internal Medicine; ATTEND Internal Medicine
DX: A41.89 Other specified sepsis (principal); J96.01 Acute respiratory failure with hypoxia; I48.0 Paroxysmal atrial fibrillation; I08.1 Rheumatic disorders of both mitral and tricuspid valves; J45.901 Unspecified asthma with (acute) exacerbation; I48.92 Unspecified atrial flutter; M06.9 Rheumatoid arthritis, unspecified; I10 Essential (primary) hypertension; Z88.2 Allergy status to sulfonamides; Z79.52 Long term (current) use of systemic steroids; J10.1 Influenza due to other identified influenza virus with other respiratory manifestations; J20.9 Acute bronchitis, unspecified
CPT/HCPCS: 36415; 71045; 80048; 80053; 82553; 83605; 83690; 83735; 84439; 84443; 84484; 85025; 87804; 93005; 93010; 93306; 94640; 96360; A4216; J1160; J1650; J2920; J7506; J7608; J7620